=== PATIENT | female | born 1970 | race African-American/Black ===

== ENCOUNTER 2017-06-17 22:40 | Emergency (ER) | payer BC, OTHER ==
[~2017-06-17] VITALS: Ht 175.3 cm; Wt 76.7 kg
[2017-06-17 23:07] VITALS: BP 146/92
[2017-06-17] MEDS ORDERED: BENZ100C PO (23:25)
[2017-06-17] MEDS ORDERED: METH4TAB2 PO (23:25)
[2017-06-17] MEDS ORDERED: PROAIR HFA8.5 GM INH (23:25)
--- NOTE | 2017-06-17 23:26 | PHYS DOC ---
Past Medical History Past Medical History: No Pertinent History Past Surgical History: Additional Information: non smoker Alcohol Use: None Drug Use: None Adult General Chief Complaint Chief Complaint: Congestion HPI HPI Patient is a 47 year old female who presents with cough and congestion. Has had a cough for one week. [place] hot but no temperature taken. No hemoptysis. No chest pain. No travel. Review of Systems Review of Systems Constitutional: Denies fever or chills Eyes: Denies change in visual acuity, redness, or eye pain HENT: POS nasal congestion and no sore throat Respiratory: POS cough; no shortness of breath Cardiovascular: No chest pain GI: Denies abdominal pain, nausea, vomiting, bloody stools or diarrhea : Denies dysuria or hematuria Musculoskeletal: Denies back pain or joint pain Integument: Denies rash or skin lesions Neurologic: Denies headache, focal weakness or sensory changes Current Medications Current Medications Current Medications Medications (Trade) Dose Ordered Sig/Fely Start Time Stop Time Status Last Admin Dose Admin Albuterol/ Ipratropium (Duoneb) 3 ml 1X ONCE 06/17/17 23:30 06/17/17 23:31 DC 06/17/17 23:22 3 ML Epinephrine (S2 Racepinephrine) 0.5 ml STK-MED ONCE 06/17/17 23:32 06/17/17 23:33 DC Allergies Allergies Allergies Coded Allergies Type Severity Reaction Last Updated Verified Sulfa (Sulfonamide Antibiotics) Allergy Intermediate 06/17/17 No Physical Exam Physical Exam Constitutional: Well developed, well nourished, no acute distress, non-toxic appearance. HENT: Normocephalic, atraumatic, bilateral external ears normal, oropharynx moist, no oral exudates, nose normal. Eyes: PERRLA, EOMI, conjunctiva normal, no discharge. Neck: Normal range of motion, no tenderness, supple, no stridor. Cardiovascular:Heart rate regular rhythm, no murmur Lungs & Thorax: Bilateral breath sounds with no wheezing; slight rhonchi. Abdomen: Bowel sounds normal, soft, no tenderness, no masses, no pulsatile masses. Skin: Warm, dry, no erythema, no rash. Back: No tenderness, no CVA tenderness. Extremities: No tenderness, no cyanosis, no clubbing, ROM intact, no edema. Neurologic: Alert and oriented X 3, normal motor function, normal sensory function, no focal deficits noted. Current Patient Data Vital Signs Vital Signs Date Time Temp Pulse Resp B/P (MAP) Pulse Ox O2 Delivery O2 Flow Rate FiO2 06/17/17 23:22 98 Room Air 06/17/17 23:07 98.2 76 20 98.2 Course & Med Decision Making Course & Med Decision Making Evaluated patient upon arrival. Duoneb given. No evidence of acute bacterial infection necessitating antibiotic usage. Rx Medrol dose [place] and inhaler. Tessalon pearles. PERC RULE Criteria: Age < than 50 years Heart rate < 100 Oxygen saturation > 95% No hemoptysis No estrogen use No prior DVT or PE No unilateral leg swelling No surgery or trauma requiring hospitalization within the prior 4 weeks Perc rule negative. I have spoken with the patient and/or caregivers. I have explained the patient' s condition, diagnosis and treatment plan based on the information available to me at this time. I have answered the patient's and/or caregiver's questions and addressed any concerns. The patient and/or caregivers have as good an understanding of the patient's diagnosis, condition and treatment plan as can be expected at this point. The patient's condition is stable and appropriate for discharge from the emergency department. The patient will pursue further outpatient evaluation with the primary care physician or other designated or consulting physician as outlined in the discharge instructions. The patient and/or caregivers are agreeable to this plan of care and follow-up instructions have been explained in detail. The patient and/or caregivers have received these instructions in written format and have expressed an understanding of the discharge instructions. The patient and/or caregivers are aware that any significant change in condition or worsening of symptoms should prompt an immediate return to this or the closest emergency department or a call to 911. Dragon Disclaimer Dragon Disclaimer This electronic medical record was generated, in whole or in part, using a voice recognition dictation system. Departure Departure Impression: Primary Impression: Viral syndrome Additional Impression: Cough due to bronchospasm Disposition: 01 HOME, SELF-CARE Condition: STABLE Referrals: NO PCP (PCP) Patient Instructions: Cough, Adult, Viral Syndrome Scripts Benzonatate (TESSALON PERLE) 100 Mg Capsule 100 MG PO TID Y for COUGH, #14 CAP Prov: RADHA SALTER MD 06/17/17 Albuterol Sulfate (PROAIR HFA INHALER) 8.5 Gm Hfa.aer.ad 1 PUFF INH PRN Q6HRS Y for SHORTNESS OF BREATH, #1 INHALER 0 Refills Prov: RADHA SALTER MD 06/17/17 Methylprednisolone (MEDROL) 4 Mg Tab.ds.pk 1 PKG PO UD, #1 PKG Prov: RADHA SALTER MD 06/17/17 Problem Qualifiers RADHA SALTER MD Jun 17, 2017 23:26
[2017-06-17] MEDS ORDERED: IPRATRPIUM/ALBUTEROL 0.5/2.5MG 3 ML NEBU. NEB ONE (23:30)
[2017-06-17] MEDS ORDERED: RACEPINEPHRINE 2.25% 0.5 ML NEBU. ONE (23:32)
== END 2017-06-17 23:36 | disposition home or self-care (01) ==
LOC: ER 22:40
DX: B34.9 Viral infection, unspecified (principal); J98.01 Acute bronchospasm; Z88.2 Allergy status to sulfonamides
CPT/HCPCS: 94250; 94640; 99283; J7620

== ENCOUNTER 2017-08-09 15:54 | Emergency (ER) | payer BC ==
[~2017-08-09] VITALS: Ht 170.2 cm; Wt 78.0 kg
[~2017-08-09 15:54] MED LIST: BENZ100C PO; METH4TAB2 PO; PROAIR HFA8.5 GM INH
[2017-08-09 16:49] VITALS: BP 129/76
[2017-08-09] MEDS ORDERED: predniSONE 20 MG TABLET PO ONE (17:45)
[2017-08-09] MEDS ORDERED: DICL50TA4 PO (17:53)
[2017-08-09] MEDS ORDERED: CYCL10TA2 PO (17:53)
[2017-08-09] MEDS ORDERED: METH4TAB2 PO (17:53)
--- NOTE | 2017-08-09 17:53 | PHYS DOC ---
Past Medical History Past Medical History: No Pertinent History Past Surgical History: Alcohol Use: None Drug Use: None Adult General Chief Complaint Chief Complaint: UPPER EXTREMITY PAIN HPI HPI Patient is a 47 year old female with no significant medical history who presents with 10 out of 10 throbbing pain on her left upper extremity specifically around the elbow that began 2 weeks ago. Patient denies any known injury. Patient states the pain is worse on range of motion. Patient states she has tried ibuprofen and Tylenol with no relief. Patient denies any chest pain or shortness of breath. Review of Systems Review of Systems Constitutional: Denies fever or chills [] Musculoskeletal: Left upper extremity pain Integument: Denies rash or skin lesions [] Neurologic: Denies headache, focal weakness or sensory changes [] All other systems were reviewed and found to be within normal limits, except as documented in this note. Allergies Allergies Allergies Coded Allergies Type Severity Reaction Last Updated Verified Sulfa (Sulfonamide Antibiotics) Allergy Intermediate 06/17/17 No Physical Exam Physical Exam Constitutional: Well developed, well nourished, no acute distress, non-toxic appearance. [] HENT: Normocephalic, atraumatic, bilateral external ears normal, oropharynx moist, no oral exudates, nose normal. [] Eyes: PERRLA, EOMI, conjunctiva normal, no discharge. [] Neck: Normal range of motion, no tenderness, supple, no stridor. [] Cardiovascular:Heart rate regular rhythm, no murmur [] Lungs & Thorax: Bilateral breath sounds clear to auscultation [] Abdomen: Bowel sounds normal, soft, no tenderness, no masses, no pulsatile masses. [] Skin: Warm, dry, no erythema, no rash. [] Back: No tenderness, no CVA tenderness. [] Extremities: No tenderness, no cyanosis, no clubbing, ROM intact, no edema. Some pain elicited around the elbow during range of motion especially extension past 45. Neurologic: Alert and oriented X 3, normal motor function, normal sensory function, no focal deficits noted. [] Psychologic: Affect normal, judgement normal, mood normal. [] Current Patient Data Vital Signs Vital Signs Date Time Temp Pulse Resp B/P (MAP) Pulse Ox O2 Delivery O2 Flow Rate FiO2 08/09/17 16:49 98.3 72 16 98 Room Air 98.3 EKG EKG [] Radiology/Procedures Radiology/Procedures [] Course & Med Decision Making Course & Med Decision Making Pertinent Labs and Imaging studies reviewed. (See chart for details) Patient is in the ED with left upper extremity pain specifically around the elbow suspicious of either tendinitis or muscle strain. She was discharged with Medrol Dosepak cyclobenzaprine and diclofenac. Recommended ice and elevation. She states she has an appointment with her own doctor in 2 weeks. Dragon Disclaimer Dragon Disclaimer This electronic medical record was generated, in whole or in part, using a voice recognition dictation system. Departure Departure Impression: Primary Impression: Musculoskeletal arm pain Additional Impression: Tendinitis of left elbow Disposition: HOME, SELF-CARE Condition: STABLE Referrals: UNKNOWN PCP NAME (PCP) WILLIAN TITUS MD follow up in one week Patient Instructions: Biceps Tendon Tendinitis (Proximal) and Tenosynovitis with Rehab-SportsMed, Muscle Strain Additional Instructions: You were seen for left upper extremity pain suspicious of tendinitis or muscle strain. Ice and elevate the extremity. Take the prescribed medicines as ordered. Follow up with your doctor next week Scripts Cyclobenzaprine Hcl (CYCLOBENZAPRINE HCL) 10 Mg Tablet 1 TAB PO TID, #30 TAB Prov: MIAABIDAGORDO TSE 08/09/17 Diclofenac Sodium (DICLOFENAC SODIUM) 50 Mg Tablet.dr 1 TAB PO BID, #30 TAB Prov: MIAGORDO TAI DEDRICK 08/09/17 Methylprednisolone (MEDROL) 4 Mg Tab.ds.pk 1 PKG PO UD, #1 PKG Prov: MIAGORDO TAI DEDRICK 08/09/17 Problem Qualifiers Primary Impression: Musculoskeletal arm pain Laterality: left Qualified Codes: M79.602 - Pain in left arm GORDO RAND DEDRICK Aug 09, 2017 17:53
== END 2017-08-09 18:00 | disposition home or self-care (01) ==
LOC: ER 15:54
DX: M77.8 Other enthesopathies, not elsewhere classified (principal); M79.602 Pain in left arm; Z88.2 Allergy status to sulfonamides
CPT/HCPCS: 99283; J7512